=== PATIENT | female | born 1935 | race Caucasian/White ===

== ENCOUNTER 2016-11-29 19:45 | Emergency (ER) | payer MEDICARE ==
[~2016-11-29] VITALS: Ht 165.1 cm; Wt 81.8 kg
[2016-11-29 19:44] VITALS: PULSE 82; RESP 21; O2SAT 88
[2016-11-29 19:57] LABS: BASOPHILS % (AUTO) 0.5 % (0-3); EOSINOPHILS % (AUTO) 1.3 % (0-5); MONOCYTES % (AUTO) 8.9 % (4-12); Mean Corpuscular Hemoglobin 33.5 pg (27.0-35.0); Mean Corpuscular Volume 99.8 fL (81-100); NEUTROPHILS % (AUTO) 72.4 % (40-74); Platelet Count 221 bil/L (150-400)
[2016-11-29 20:26] LABS: TROPONIN T < 0.010 ug/L (0.0-0.011)
[2016-11-29 20:30] LABS: Magnesium 1.6 mg/dL (1.6-2.6)
--- NOTE | 2016-11-29 20:42 | DRSVH ---
PROCEDURE: X-RAY CHEST ONE VIEW, PORTABLE ([id number]) INDICATIONS: hypoxia TECHNIQUE: One view of the chest was acquired. COMPARISON: [facility], , CHEST 2VW, 06/29/2012, 13:55. FINDINGS: Surgical changes and devices: None. Lungs and pleura: No pleural effusions or pneumothorax. Lungs are clear. Mediastinum: Mediastinal contours appear normal. Heart size is normal. Bones and chest wall: S-shaped thoracic spine scoliosis is noted. No suspicious bony lesions. Overl aylin soft tissues appear unremarkable. IMPRESSION: No acute cardiopulmonary disease process. Dictated by: Christina Valdez MD, PhD on 11/29/2016 at 20:41 Approved by: Christina Valdez MD, PhD on 11/29/2016 at 20:41
[2016-11-29] MEDS ORDERED: Albuterol-Ipratropium 3 mL Inhalation Solution NEB ONE (20:55)
[2016-11-29] MEDS ORDERED: MethylprednisoLONE Sodium Succinate 62.5 mg/mL 2 mL Inj IVPUSH ONE (20:55)
--- NOTE | 2016-11-29 21:39 | ED.REPORT ---
HPI-Dyspnea / Wheezing Date of Service Nov 29, 2016 ED Provider: Jeffry Reich DO This patient is a 81 year old female with a history of hypertension brought in by EMS due to flu symptoms that started 3 days ago, with increased shortness of breath tonight. Pt was watching TV when her increased shortness of breath started this evening. She was given Zithromax at Urgent Care when she was evaluated there 3 days ago. She also complains of cough but denies hemoptysis, fever, pleuritic pain, or leg swelling. She says that she has been sitting up right to breathe properly for the past 2 days. She denies a history of DVT, pulmonary embolism, COPD, and emphysema. She is not on home O2. Nursing Notes Stated Complaint: STEMI Chief Complaint: Chest Pain Nursing Notes Reviewed: Yes Allergies: Coded Allergies: cephalexin (Verified Allergy, Intermediate, Rash, 11/29/16) General Time Seen by MD: 19:52 Chief Complaint Other (Flu symptoms) Hx Obtained From: Patient, EMS Arrived By: Ambulance Sudden in Onset?: No Onset Occurred: 3 days ago Symptom Duration: Since onset Location: : None Recent Healthcare: No recent hospitalization, Recent doctor visit Similar Sx Previous: No Past Medical History Past Medical History arthritis Reports: Hypertension Past Surgical History None reported Smoking History Former Smoker Social History Alcohol Use: "Social" Ambulatory Status Independent Review of Systems Constitutional: Denies: Chills, Fever Respiratory: Reports: Non-productive cough, Shortness of breath, Denies: Hemoptysis, Pleuritic pain Cardiovascular: Denies: Chest pain Musculoskeletal: Denies: Extremity swelling (Leg) Complete sys rev & neg: except as marked. Physical Exam Physical Exam Notes: Hypoxic 90% on room air Initial Vital Signs Vital Signs (First) Date Time Temp Pulse Resp B/P Pulse Ox O2 Delivery O2 Flow Rate FiO2 11/29/16 19:44 36.4 82 21 88 Room Air 11/30/16 02:30 168/63 Initial VS: Reviewed Head / Eyes: Atraumatic, Normocephalic, PERRL ENT: Conjunctiva normal, No scleral icterus Abdomen / GI: Soft, Non-tender Extremities: Vascular intact, Neuro intact Skin: Warm, Dry, No cyanosis Neurologic: Alert, Oriented, Nonfocal Psychiatric: Mood/affect normal, Behavior normal, Normal thought content General/Constitutional: Awake, Alert Neck: Atraumatic, Supple, No meningismus, Full range of motion, No adenopathy Respiratory / Chest: Atraumatic Wheezing / Retractions: Positive: Wheezing expiratory Coarse bilateral breath sounds Cardiovascular: Heart rate NL, Regular rhythm, Heart sounds NL Interpretation & Diagnostics Interpretation & Diagnostics: NEGATIVE FOR INFLUENZA TYPE A AND B Lab Results Interpretation Result Diagram: 11/29/16194811/29/161948 Test 11/29/16 19:49 11/29/16 20:03 11/29/16 23:18 White Blood Count 8.2th/mm3 (3.8-10.1) Red Blood Count 4.03mil/mm3 (3.90-5.20) Hemoglobin 13.5g/dL (12.0-15.6) Hematocrit 40.2% (35.0-46.0) Mean Corpuscular Volume 99.8fL (81-100) Mean Corpuscular Hemoglobin 33.5pg (27.0-35.0) Mean Corpuscular Hemoglobin Concent 33.6% (32.0-37.0) Red Cell Distribution Width 14.9% (12.3-15.4) Platelet Count 221bil/L (150-400) Neutrophils (%) (Auto) 72.4% (40-74) Lymphocytes (%) (Auto) 16.7% (14-46) Monocytes (%) (Auto) 8.9% (4-12) Eosinophils (%) (Auto) 1.3% (0-5) Basophils (%) (Auto) 0.5% (0-3) Sodium Level 130mEq/L (134-144) Potassium Level 4.0mEq/L (3.5-5.2) Chloride Level 92mEq/L (97-108) Carbon Dioxide Level 23mmol/L (18-29) Blood Urea Nitrogen 16mg/dL (8-27) Creatinine 0.76mg/dL (0.57-1.00) Estimat Glomerular Filtration Rate 105mL/min (>59) Glucose Level 156mg/dL (60-99) Calcium Level 8.4mg/dL (8.5-10.1) Magnesium Level 1.6mg/dL (1.6-2.6) Total Bilirubin 0.5mg/dL (0.0-1.2) Aspartate Amino Transf (AST/SGOT) 24U/L (0-50) Alanine Aminotransferase (ALT/SGPT) 15U/L (0-32) Alkaline Phosphatase 45U/L (25-165) Pro-B-Type Natriuretic Peptide 2231pg/mL (0-738) Total Protein 7.1g/dL (6.4-8.4) Albumin 3.8g/dL (3.4-5.0) Hold Purple Top Tube Received (Received) D-Dimer 1.7mg/L (<0.50) Hold Blue Top Tube Received (Received) Hold Red Top Tube Received (Received) Hold [place] Top Tube Received (Received) Hold [place] Top Tube Received (Received) Troponin T 0.010ug/L (0.0-0.011) Pulse Oximetry Interpretation Pulse Oximetry Interpretation: 88% on room air ECG Interpretation ECG Interpretation: X-Ray Chest Interpretation Chest Xray Interpretation: IMPRESSION: No acute cardiopulmonary disease process. Dictated by: Christina Valdez MD, PhD on 11/29/2016 at 20:41 Interpretation / Wet Read by: Interpret - Radiologist CT Chest Interpretation CONCLUSION: No evidence of pulmonary embolism. Small hiatal hernia. The lungs are clear. Radiologist: Ana Paula Robert MD Study type: CT pulm angiogram Interpretation / Wet Read by: Interpret - Radiologist Re-Eval/Medical Decision Med Decision/Clinical Course Patient has clear lungs and an O2 sat 94%. She is ready to be discharged home. PR ruled out with serial Troponins. Source of Hx: Old records, EMS Re-Evaluation/Progress #1: Time of Eval: 23:02 )( Re-Eval Resp / Chest: Mild wheezing Patient Status: Condition improved Re-Evaluation/Progress Note: Pt. rechecked. She states that she feels much better. Still has mild wheezing. Will recheck after further medication. Re-Evaluation/Progress #2: Time of Eval: 03:00 Patient Status: Condition improved Re-Evaluation/Progress Note: Patient has clear lungs and an O2 sat 94%. She is ready to be discharged home. PR ruled out with serial Troponins. Patient understands and agrees with the plan to be discharged home. Discharge instructions and follow-up discussed. All questions were addressed. Return to the ED warnings given. Counseled Regarding: Diagnosis, Lab results, Need for follow-up, When/why to return to ED Discharge & Departure Impression: Primary Impression: Bronchitis with bronchospasm Disposition: Home Discharge Condition All VS Reviewed: Yes Condition: Stable Patient Instructions: Acute Bronchitis (ED) Additional Instructions: It appears that you have bronchitis. Your laboratory evaluation, EKG, chest x- ray, and CT scan were reassuring. Use albuterol every 2-3 hours as needed for cough and wheeze. Take Doxycycline twice daily for the next 7 days. Prednisone 80mg daily for the next 3 days, then return to your usual dose. Schedule a follow-up with your doctor for early next week. Return to the Emergency department if you develop difficulty breathing, worsening cough, fever any new or concerning symptoms. Referrals: Brandee Hanna MD (PCP) Scribe Attestation Portions of this note were transcribed by Henrietta Riley I, Dr. Reich personally performed the history, physical exam and medical decision-making ; I reviewed and confirmed the accuracy of the information in the transcribed note. Signed by: Henrietta Price and Eric Camp, 11/30/2016 and 0343. copies to: Brandee Hanna MD, Todd P DO Nov 29, 2016 21:39 Jennyfer Prcie [Henrietta] Nov 29, 2016 22:16 Brandee Riley Nov 30, 2016 03:02
[2016-11-29] MEDS ORDERED: Albuterol 2.5 mg/3 mL Inhalation Solution NEB ONE (23:05)
[2016-11-30 02:30] VITALS: BP 168/63; PULSE 107; RESP 16; O2SAT 92
[2016-11-30] MEDS ORDERED: _Albuterol-HFA 60 Puff Inhaler INHALATION PRN (03:00)
[2016-11-30] MEDS ORDERED: _oxyCODONE/APAP 5-325 mg Tablet PO PRN (03:00)
[2016-11-30 03:33] VITALS: BP 168/63; PULSE 107; RESP 16; O2SAT 92
--- NOTE | 2016-11-30 07:33 | DRSVH ---
PROCEDURE: CT ANGIO CHEST PULMONARY EMBOLISM ([id number]) INDICATIONS: dyspnea, hypoxia, negative xray TECHNIQUE: After the administration of intravenous contrast, 2 mm thick sections acquired from the pulmonary api kina to the posterior costophrenic angles. 3-dimensional maximum intensity projection (MIP) coronal a nd sagittal reformats were then acquired through the thorax. For radiation dose reduction, the follo wing was used: automated exposure control, adjustment of mA and/or kV according to patient size. COMPARISON: None. FINDINGS: Image quality: Opacification of the pulmonary arteries within the mid and distal branches is consider ed suboptimal for evaluation. Pulmonary arteries: Pulmonary arteries are normal in size, and demonstrate no intraluminal filling d efects to suggest central pulmonary embolism. Lungs and pleura: Lungs are clear. No pleural effusions or pneumothorax. Central and peripheral ai rways are patent. Mediastinum: Heart size is normal, without pericardial effusion. No mediastinal or hilar adenopathy by size criteria. However, multiple subcentimeter lymph nodes are present within the mediastinum.. Thoracic aorta is normal in caliber and enhancement. Esophagus is normal in caliber, with mild hiata l hernia. Bones and chest wall: No suspicious bony lesions. Ribs and thoracic spine appear intact throughout. Thyroid gland is unremarkable. No axillary or supraclavicular adenopathy. Abdomen: Visualized upper abdominal solid organs appear normal in the early arterial phase of enhanc ement. IMPRESSION: 1. No evidence of pulmonary embolism within the main pulmonary artery or proximal branches. Mid and d istal branches are not well evaluated secondary to artifact. 2. Lungs are clear. 3. Multiple sub-centimeter lymph nodes within the mediastinum, overall nonspecific. Dictated by: Tatiana Abbott M.D. on 11/30/2016 at 7:32 Approved by: Tatiana Abbott M.D. on 11/30/2016 at 7:32
== END 2016-11-30 03:34 | disposition home or self-care (01) ==
LOC: SED 19:45
DX: J20.9 Acute bronchitis, unspecified (principal); I10 Essential (primary) hypertension; Z87.891 Personal history of nicotine dependence; Z88.1 Allergy status to other antibiotic agents
CPT/HCPCS: 36415; 71010; 71275; 80053; 83735; 83880; 84484; 85025; 85379; 87804; 93005; 94640; 96374; 99285; J2930; J7620; Q9967